=== PATIENT | female | born 1995 | race Caucasian/White ===

== ENCOUNTER 2022-01-08 19:20 | Inpatient (IN) | payer OTHER ==
[2022-01-08] MEDS: MISOPROSTOL 100 MCG TABLET PV SCH (22:00)
[2022-01-08 22:09] VITALS: BMI 44.5
[2022-01-08] MEDS ORDERED: LABETALOL HCL 100 MG TABLET (FP) PO SCH (22:15)
[2022-01-08] MEDS: DEXTROSE 5%-LACTATED RINGERS 1,000 ML IV SCH (22:30)
[2022-01-08] MEDS ORDERED: LABETALOL HCL 200 MG TABLET (FP) PO SCH (22:53)
[2022-01-08] MEDS ORDERED: LABETALOL HCL 200 MG TABLET (FP) ONE (23:53)
[2022-01-09] MEDS: MISOPROSTOL 100 MCG TABLET PV SCH ×3 (01:15→09:15)
[2022-01-09] MEDS ORDERED: OXYTOCIN 30 UNITS in 0.9% NS 30 UNIT/500 ML INFUS.BAG IVPB ONE (03:00)
[2022-01-09] MEDS: OXYTOCIN 30 UNITS in 0.9% NS 30 UNIT/500 ML INFUS.BAG IVPB SCH (03:15)
[2022-01-09] MEDS: DEXTROSE 5%-LACTATED RINGERS 1,000 ML IV SCH ×2 (06:30→22:35)
[2022-01-09 09:23] LABS: BASO % 0.7 % (0-2.0); HEMATOCRIT 37.6 % (32.4-45.2); HEMOGLOBIN 12.4 GM/dL (10.7-15.3); LYMPH % 15.9 % (8-40); MCH 27.3 pg (25.7-33.7); MEAN CELL VOLUME 82.7 fl (80-96); MEAN PLT VOLUME 8.9 fl (7.5-11.1); MONO % 8.7 % (3.8-10.2); NEUT % 71.7 % (42.8-82.8); PLATELET COUNT 254 10^3/uL (134-434); RBC 4.55 M/mm3 (3.60-5.2); RDW 17.9 % (11.6-15.6); WHITE BLOOD COUNT 9.7 K/mm3 (4.0-10.0)
[2022-01-09 09:24] LABS: INR 0.91 (0.83-1.09); PROTHROMBIN TIME (PATIENT) 10.4 SEC (9.7-13.0)
[2022-01-09 09:27] LABS: ACTIVATED PTT 27.3 SECONDS (25.2-36.5)
[2022-01-09 09:38] LABS: BLOOD UREA NITROGEN 9.6 mg/dL (7-18)
[2022-01-09 09:41] LABS: CREATININE 0.6 mg/dL (0.55-1.3)
[2022-01-09] MEDS: LABETALOL HCL 200 MG TABLET (FP) PO SCH ×3 (09:45→22:00)
[2022-01-09] MEDS ORDERED: PENICILLIN G POTASSIUM 20,000,000 (20Mm) UNITS VIAL IVPB ONE (12:15)
[2022-01-09] MEDS ORDERED: PENICILLIN G POTASSIUM 20,000,000 (20Mm) UNITS VIAL IVPB SCH (12:30)
[2022-01-09] MEDS ORDERED: PENICILLIN G POTASSIUM 5,000,000 UNIT in DEXTROSE 5%-WATER 100 ML IVPB ONE (13:00)
[2022-01-09] MEDS ORDERED: morphine SULFATE 4 MG/ML VIAL IVPB ONE ×2 (13:48→23:16)
[2022-01-09] MEDS ORDERED: morphine SULFATE 4 MG/ML VIAL ONE ×2 (14:00→23:15)
[2022-01-09] MEDS: PENICILLIN G POTASSIUM 2,500,000 UNIT in DEXTROSE 5%-WATER - 100 ML IVPB SCH ×2 (17:11→21:00)
[2022-01-09] MEDS ORDERED: SODIUM CHLORIDE 500 ML IV STA (21:27)
[2022-01-09] MEDS ORDERED: LABETALOL HCL 100 MG TABLET (FP) ONE (22:07)
[2022-01-10] MEDS: PENICILLIN G POTASSIUM 2,500,000 UNIT in DEXTROSE 5%-WATER - 100 ML IVPB SCH (01:05)
[2022-01-10] MEDS ORDERED: LIDOCAINE HCL 1% PRESERVATIVE FREE - 30ML VIAL ONE (01:22)
[2022-01-10] MEDS ORDERED: OXYTOCIN 20 UNITS in 0.9% NS 20 UNIT/1,000 ML INFUS.BAG IV ONE (01:22)
[2022-01-10] MEDS ORDERED: OXYTOCIN 30 UNITS in 0.9% NS 30 UNIT/500 ML INFUS.BAG IVPB ONE (02:02)
[2022-01-10] MEDS: OXYTOCIN 30 UNITS in 0.9% NS 30 UNIT/500 ML INFUS.BAG IVPB SCH (02:20)
[2022-01-10] MEDS ORDERED: BENZOCAINE 28 GM HEMORRHOIDAL OINTMENT TP PRN (03:56)
[2022-01-10] MEDS ORDERED: BENZOCAINE 20% 57 GM BOTTLE TP PRN (03:56)
[2022-01-10] MEDS ORDERED: WITCH HAZEL 50% (TUCKS) 40 PAD/JAR PAD TP PRN (03:56)
[2022-01-10] MEDS ORDERED: ACETAMINOPHEN 325 MG TABLET (FP) PO PRN (03:56)
[2022-01-10] MEDS ORDERED: OXYTOCIN 20 UNITS in 0.9% NS 20 UNIT/1,000 ML INFUS.BAG IV SCH (04:00)
[2022-01-10 04:53] LABS: CORD BASE EXCESS -6.9 mmol/L (0-2); CORD HCO3 22.6 mmHg (20-29); CORD PCO2 60.8 mmHg (30-78); CORD pH 7.189 (7.14-7.44)
[2022-01-10 04:56] LABS: CORD BASE EXCESS -6.1 mmol/L (0-2); CORD PCO2 47.1 mmHg (30-78); CORD pH 7.268 (7.14-7.44)
[2022-01-10] MEDS: PRENATAL VITAMINS W/ FOLIC ACID TABLET (FP) PO SCH (09:54)
[2022-01-10] MEDS: LABETALOL HCL 200 MG TABLET (FP) PO SCH (09:54)
[2022-01-10] MEDS: FERROUS SO4 325 MG TABLET (FP) PO SCH ×3 (09:54→17:29)
[2022-01-11] MEDS: LEVOTHYROXINE NA 25 MCG TABLET (FP) PO SCH (06:44)
[2022-01-11] MEDS: PRENATAL VITAMINS W/ FOLIC ACID TABLET (FP) PO SCH (09:24)
[2022-01-11] MEDS: IBUPROFEN 600 MG TABLET (FP) PO PRN ×2 (09:24→20:16)
[2022-01-11] MEDS: FERROUS SO4 325 MG TABLET (FP) PO SCH ×3 (09:24→17:03)
[2022-01-11 09:37] LABS: BASO % 0.6 % (0-2.0); EOS % 2.7 % (0-4.5); HEMATOCRIT 30.1 % (32.4-45.2); HEMOGLOBIN 10.3 GM/dL (10.7-15.3); MCH 28.3 pg (25.7-33.7); MCHC 34.2 g/dl (32.0-36.0); MEAN CELL VOLUME 82.9 fl (80-96); MEAN PLT VOLUME 8.2 fl (7.5-11.1); MONO % 7.3 % (3.8-10.2); NEUT % 73.4 % (42.8-82.8); PLATELET COUNT 235 10^3/uL (134-434); RBC 3.63 M/mm3 (3.60-5.2); RDW 18.3 % (11.6-15.6); WHITE BLOOD COUNT 13.8 K/mm3 (4.0-10.0)
[2022-01-11] MEDS ORDERED: SENNOSIDES/DOCUSATE COMBO (SENNA PLUS) TABLET (UD) PO PRN (22:00)
[2022-01-12] MEDS: LEVOTHYROXINE NA 25 MCG TABLET (FP) PO SCH (06:20)
[2022-01-12] MEDS: FERROUS SO4 325 MG TABLET (FP) PO SCH ×2 (09:00→13:18)
[2022-01-12] MEDS: PRENATAL VITAMINS W/ FOLIC ACID TABLET (FP) PO SCH (09:00)
[2022-01-12 09:08] VITALS: BP 113/72; PULSE 91; RESP 14; TEMP 98.8
== END 2022-01-12 14:06 | disposition home or self-care (01) | DRG 806 ==
LOC: JLDR 19:20 → J3W 01-10 05:09
PROVIDERS: ADMIT Obstetrics & Gynecology Maternal & Fetal Medicine; ATTEND Obstetrics & Gynecology Maternal & Fetal Medicine
PROC: 10H07YZ Insertion of Other Device into Products of Conception, Via Natural or Artificial Opening (ICD-10-PCS; 2022-01-09)
PROC: 10E0XZZ Delivery of Products of Conception, External Approach (ICD-10-PCS; principal; 2022-01-10)
DX: O41.03X0 Oligohydramnios, third trimester, not applicable or unspecified (principal); O10.92 Unspecified pre-existing hypertension complicating childbirth; Z37.0 Single live birth; O99.284 Endocrine, nutritional and metabolic diseases complicating childbirth; E03.8 Other specified hypothyroidism; O99.214 Obesity complicating childbirth; E66.01 Morbid (severe) obesity due to excess calories; Z3A.40 40 weeks gestation of pregnancy
CPT/HCPCS: 36415; 36600; 59409; 80048; 82803; 85025; 85610; 85730; 86850; 86900; 86901; 88307-TC; C9803-CS; U0003; U0005

== ENCOUNTER 2023-09-12 01:55 | Inpatient (IN) | payer OTHER ==
[2023-09-12] MEDS: DEXTROSE 5%-LACTATED RINGERS 1,000 ML IV SCH (03:30)
[2023-09-12 03:48] VITALS: BMI 43.0
[2023-09-12 04:19] LABS: BASO % 0.6 % (0-2.0); EOS % 1.4 % (0-4.5); HEMATOCRIT 33.3 % (32.4-45.2); HEMOGLOBIN 11.1 GM/dL (10.7-15.3); MCH 24.7 pg (25.7-33.7); MCHC 33.2 g/dl (32.0-36.0); MEAN CELL VOLUME 74.5 fl (80-96); MEAN PLT VOLUME 8.3 fl (7.5-11.1); MONO % 8.7 % (3.8-10.2); NEUT % 69.3 % (42.8-82.8); PLATELET COUNT 250 10^3/uL (134-434); RBC 4.47 M/mm3 (3.60-5.2); WHITE BLOOD COUNT 8.7 K/mm3 (4.0-10.0)
[2023-09-12 04:33] LABS: INR 0.92 (0.83-1.09); PROTHROMBIN TIME (PATIENT) 10.4 SEC (9.7-13.0)
[2023-09-12 04:36] LABS: ACTIVATED PTT 25.6 SECONDS (25.2-36.5)
[2023-09-12] MEDS ORDERED: morphine SULFATE 4 MG/ML VIAL IVPB ONE (04:38)
[2023-09-12] MEDS ORDERED: morphine SULFATE 4 MG/ML VIAL ONE (04:45)
[2023-09-12] MEDS: morphine CARPU-JECT 8 MG/1 ML DISP.SYRIN IVPB ONE (04:55)
[2023-09-12] MEDS: SODIUM CHLORIDE 500 ML IV STA ×2 (05:31→08:15)
[2023-09-12] MEDS: OXYTOCIN 30 UNITS in 0.9% NS 30 UNIT/500 ML INFUS.BAG IVPB SCH (06:20)
[2023-09-12 06:32] LABS: POTASSIUM 4.1 mmol/L (3.5-5.1)
[2023-09-12 06:34] LABS: CALCIUM 8.9 mg/dL (8.5-10.1)
[2023-09-12 06:35] LABS: BLOOD UREA NITROGEN 11.1 mg/dL (7-18)
[2023-09-12 06:38] LABS: CREATININE 0.6 mg/dL (0.55-1.3)
[2023-09-12] MEDS ORDERED: OXYTOCIN 20 UNITS in 0.9% NS 20 UNIT/1,000 ML INFUS.BAG IV ONE (11:40)
[2023-09-12] MEDS ORDERED: LIDOCAINE HCL 1% PRESERVATIVE FREE - 30ML VIAL ONE (12:26)
[2023-09-12] MEDS ORDERED: IBUPROFEN 600 MG TABLET (FP) PO PRN (12:52)
[2023-09-12] MEDS ORDERED: ACETAMINOPHEN 325 MG TABLET (FP) PO PRN (12:52)
[2023-09-12] MEDS ORDERED: BENZOCAINE 28 GM HEMORRHOIDAL OINTMENT TP PRN (12:52)
[2023-09-12] MEDS ORDERED: BENZOCAINE 20% 57 GM BOTTLE TP PRN (12:52)
[2023-09-12] MEDS ORDERED: WITCH HAZEL 50% (TUCKS) 40 PAD/JAR PAD TP PRN (12:52)
[2023-09-12] MEDS ORDERED: OXYTOCIN 20 UNITS in 0.9% NS 20 UNIT/1,000 ML INFUS.BAG IV SCH (13:00)
[2023-09-12 13:46] LABS: CORD BASE EXCESS -10.4 mmol/L (0-2); CORD HCO3 16.8 mmHg (20-29); CORD PCO2 41.5 mmHg (30-78); CORD pH 7.225 (7.14-7.44)
[2023-09-12 13:48] LABS: CORD BASE EXCESS -5.7 mmol/L (0-2); CORD HCO3 21.6 mmHg (20-29); CORD PCO2 48.3 mmHg (30-78); CORD pH 7.268 (7.14-7.44)
[2023-09-13 07:19] LABS: BASO % 0.5 % (0-2.0); EOS % 1.8 % (0-4.5); HEMATOCRIT 25.9 % (32.4-45.2); HEMOGLOBIN 8.6 GM/dL (10.7-15.3); LYMPH % 20.5 % (8-40); MCH 25.2 pg (25.7-33.7); MCHC 33.3 g/dl (32.0-36.0); MEAN CELL VOLUME 75.6 fl (80-96); MEAN PLT VOLUME 8.7 fl (7.5-11.1); MONO % 8.3 % (3.8-10.2); NEUT % 68.9 % (42.8-82.8); PLATELET COUNT 224 10^3/uL (134-434); RBC 3.42 M/mm3 (3.60-5.2); RDW 15.9 % (11.6-15.6); WHITE BLOOD COUNT 11.8 K/mm3 (4.0-10.0)
[2023-09-13] MEDS ORDERED: DIPHTH,PERTUSS(ACELL),TET 0.5 ML DISP.SYRIN IM ONE (10:00)
[2023-09-13] MEDS ORDERED: DOCUSATE SODIUM 100 MG CAPSULE (FP) PO PRN (15:00)
[2023-09-13] MEDS: FERROUS SO4 325 MG TABLET (FP) PO SCH (18:14)
[2023-09-14 09:54] VITALS: BP 136/83; PULSE 88; RESP 18; TEMP 98.3
== END 2023-09-14 14:00 | disposition home or self-care (01) | DRG 560 ==
LOC: JDEL 01:55 → JLDR 03:10 → J3W 14:50
PROVIDERS: ADMIT Obstetrics & Gynecology Maternal & Fetal Medicine; ATTEND Obstetrics & Gynecology Maternal & Fetal Medicine
PROC: 10E0XZZ Delivery of Products of Conception, External Approach (ICD-10-PCS; principal; 2023-09-12)
PROC: 0HQ9XZZ Repair Perineum Skin, External Approach (ICD-10-PCS; 2023-09-12)
DX: O10.92 Unspecified pre-existing hypertension complicating childbirth (principal); O70.0 First degree perineal laceration during delivery; Z3A.39 39 weeks gestation of pregnancy; Z37.0 Single live birth
CPT/HCPCS: 36415; 36600; 59409; 80048; 82803; 85025; 85610; 85730; 86780; 86850; 86900; 86901